=== PATIENT | male | born 1965 | race Caucasian/White ===

== ENCOUNTER 2023-01-11 12:16 | Emergency (ER) | payer MEDICAID, SELFPAY ==
[2023-01-11 12:45] VITALS: BP 137/92; PULSE 75; RESP 18; TEMP 36.7; O2SAT 98; BMI 23.7
--- NOTE | 2023-01-11 12:51 | XR_ITS ---
FINAL REPORT CLINICAL HISTORY: LT FOOT pain COMPARISON: None FINDINGS: LEFT ANKLE Three views demonstrate no acute fracture or dislocation. The visualized joint spaces are normally aligned. The mortise is intact. There is a small plantar spur. The soft tissues are unremarkable. IMPRESSION: No acute bony abnormality. Reviewed, Interpreted and Dictated by Lobo Michael MD Transcribed by Leila Graf Authenticated and [facility]
--- NOTE | 2023-01-11 12:51 | XR_ITS ---
FINAL REPORT CLINICAL HISTORY: LT FOOT pain COMPARISON: None FINDINGS: LEFT FOOT Three views of the left foot demonstrate no acute fracture or dislocation. Small plantar spur is noted. The visualized joint spaces are normally aligned. The soft tissues are unremarkable. IMPRESSION: No acute bony abnormality. Small plantar spur. Reviewed, Interpreted and Dictated by Lobo Michael MD Transcribed by Leila Graf Authenticated and . [facility]
--- NOTE | 2023-01-11 12:55 | EXP.UTC ---
Discharge Plan Disposition Patient Disposition: Home, Self-Care Condition: Good Prescriptions Prescriptions: New methylprednisolone 4 mg Tablets,Dose Pack 4 mg PO DIRECTED Qty: 21 0RF Referrals Follow up/Referrals: Batsheva White PA [Primary Care Provider] - See instructions Taryn Daniels DPM [Staff Physician] - See instructions Activity Restrictions/Add. Instructions Additional Instructions/Restrictions: Rest your left foot, Elevate the extremity as tolerated while you are resting. Take the medications as directed. Follow up with Dr. Daniels (podiatry) if you continue to have the foot and ankle pain. I put in a referral but you need to call her office and schedule an appointment. Follow up with your regular doctor. GO TO THE ER FOR ANY WORSENING SYMPTOMS Clinical Impressions Clinical Impression: Arthralgia, Left foot pain, Ankle pain, left Instructions Patient Instructions: DI for Arthralgia, DI for Foot Pain, Methylprednisolone Discharge ED Provider: Tre Leonardo [facility] General Stated complaint: Lt foot swelling, joint pain Time Seen by Provider: 01/11/23 12:55 History of Present Illness Provider Complaint: He states that he has had multiple joint pain for the past 2 weeks. He states that his left foot and ankle hurts the worst. He denies any injury. Related Data Previous Rx's Medication Instructions Recorded methylprednisolone 4 mg tablets in 4 mg PO DIRECTED #21 tabs 01/11/23 a dose pack Allergies Allergy/AdvReac Type Severity Reaction Status Date / Time No Known Allergies Allergy Verified 01/11/23 13:00 [facility] Disclaimer: The information contained in this section may have been updated after the patient was seen, as this information can be updated by other users. Medical History (Updated 01/11/23 @ 13:40 by Tre Leonardo APRN) Anxiety Depression Seizure UTI (urinary tract infection) Social History Smoking Status: Former smoker alcohol intake: never current occupational status: employed Travel in the last 8 weeks: None ROS Obtained: Yes All systems reviewed & no additional complaints except as documented Constitutional Constitutional: Denies chills and Denies fever(s) Eyes Eyes: Denies eye discharge ENT Ears, Nose, Mouth, and Throat: Denies dizziness, Denies otalgia and Denies sore throat Cardiovascular Cardiovascular: Denies chest pain Respiratory Respiratory: Denies shortness of breath, Denies chest congestion, Denies cough, Denies stridor and Denies wheezing Gastrointestinal Gastrointestingal: Denies nausea or vomiting Musculoskeletal Musculoskeletal: Reports as per HPI and Reports arthralgias Integumentary/Breasts Skin/Breast: Denies rash Neurologic Neurologic: Denies dizziness and Denies paresthesias Allergic/Immunologic Allergic/Immunologic: Denies wheezing Physical Exam General General appearance: alert and in no apparent distress Head Head exam: atraumatic, normocephalic and normal inspection Eye Eye exam: Present normal appearance, PERRL and EOMI ENT ENT exam: Present normal exam, normal oropharynx, mucous membranes moist, TM's normal bilaterally and normal external ear exam Neck Neck exam: Present normal inspection, full ROM and trachea midline; Absent meningismus or lymphadenopathy Chest Chest inspection: Present normal inspection and symmetric chest wall rise; Absent tenderness Respiratory Respiratory exam: Present normal lung sounds bilaterally; Absent respiratory distress Cardiovascular Cardiovascular exam: Present regular rate and normal rhythm; Absent JVD Abdominal Exam Abdominal exam: Present soft and normal bowel sounds; Absent distention, tenderness or guarding Extremities Exam Extremities exam: Present normal capillary refill; Absent calf tenderness Expanded Lower Extremity Exam Left: Knee exam: Present normal inspection, full ROM and knee extension intact; Absent tenderness Lower leg exa
[2023-01-11 13:43] VITALS: BP 137/92; PULSE 75; RESP 18; TEMP 36.7; O2SAT 98
== END 2023-01-11 13:43 | disposition home or self-care (01) ==
PROVIDERS: Emergency Provider Nurse Practitioner Family; PCP Physician Assistant
DX: M79.672 Pain in left foot (principal); M25.572 Pain in left ankle and joints of left foot; F41.9 Anxiety disorder, unspecified; F32.A Depression, unspecified; Z87.891 Personal history of nicotine dependence
CPT/HCPCS: 73610; 73630; 99204; 99212; G0463

== ENCOUNTER 2023-02-05 09:30 | Emergency (ER) | payer MEDICAID, SELFPAY ==
[2023-02-05 10:15] VITALS: BP 124/79; PULSE 66; RESP 20; TEMP 36.8; O2SAT 96; BMI 23.9
--- NOTE | 2023-02-05 10:21 | EXP.UTC ---
Discharge Plan Disposition Patient Disposition: Home, Self-Care Condition: Good Prescriptions Prescriptions: New sulfamethoxazole-trimethoprim [Bactrim DS] 800-160 mg Tablet 1 tab PO BID Qty: 20 0RF cephalexin 500 mg capsule 500 mg PO QID Qty: 40 0RF mupirocin 2 % ointment 1 applic topical TID 7 Days Qty: 15 0RF Referrals Follow up/Referrals: Provider,Referral, MD [Primary Care Provider] - See instructions Activity Restrictions/Add. Instructions Additional Instructions/Restrictions: Keep the affected area clean and dry. Follow up with your regular doctor. Take the antibiotics as directed and apply the topical antibiotics as directed. Apply warm wet compresses to the affected area three or four times per day. GO TO THE ER FOR ANY WORSENING SYMPTOMS Clinical Impressions Clinical Impression: Cutaneous abscess of face Instructions Patient Instructions: Boil Discharge ED Provider: Tre Leonardo [facility] HPI General Stated complaint: KNOT ON LEFT SIDE OF FACE Time Seen by Provider: 02/05/23 10:21 History of Present Illness Provider Complaint: He states that for the past 4 days he has had a swollen area on the left side of his face. The area has been red and there is an open wound with tannish drainage from it. He denies any fever. Related Data Previous Rx's Medication Instructions Recorded cephalexin 500 mg capsule 500 mg PO QID #40 caps 02/05/23 mupirocin 2 % topical ointment 1 applic topical TID 7 days #15 02/05/23 grams sulfamethoxazole 800 1 tab PO BID #20 tabs 02/05/23 mg-trimethoprim 160 mg tablet (Bactrim DS) Allergies Allergy/AdvReac Type Severity Reaction Status Date / Time No Known Allergies Allergy Verified 01/11/23 13:00 [facility] Disclaimer: The information contained in this section may have been updated after the patient was seen, as this information can be updated by other users. Medical History (Updated 02/05/23 @ 10:29 by Tre Leonardo APRN) Anxiety Depression Seizure UTI (urinary tract infection) Social History (Updated 01/12/23 @ 13:38 by Tre Leonardo APRN) Smoking Status: Former smoker alcohol intake: never current occupational status: employed Travel in the last 8 weeks: None ROS Obtained: Yes All systems reviewed & no additional complaints except as documented Constitutional Constitutional: Denies chills and Denies fever(s) Eyes Eyes: Denies eye discharge ENT Ears, Nose, Mouth, and Throat: Denies dizziness, Denies otalgia and Denies sore throat Cardiovascular Cardiovascular: Denies chest pain Respiratory Respiratory: Denies shortness of breath, Denies chest congestion, Denies cough, Denies stridor and Denies wheezing Gastrointestinal Gastrointestingal: Denies nausea or vomiting Musculoskeletal Musculoskeletal: Reports system reviewed and no additional complaints, except as documented and Denies arthralgias Integumentary/Breasts Skin/Breast: Reports as per HPI Neurologic Neurologic: Denies dizziness and Denies paresthesias Allergic/Immunologic Allergic/Immunologic: Denies wheezing Physical Exam General General appearance: alert and in no apparent distress Head Head exam: atraumatic, normocephalic and normal inspection Eye Eye exam: Present normal appearance, PERRL and EOMI ENT ENT exam: Present normal exam, normal oropharynx, mucous membranes moist, TM's normal bilaterally and normal external ear exam Neck Neck exam: Present normal inspection, full ROM and trachea midline; Absent meningismus or lymphadenopathy Chest Chest inspection: Present normal inspection and symmetric chest wall rise; Absent tenderness Respiratory Respiratory exam: Present normal lung sounds bilaterally; Absent respiratory distress Cardiovascular Cardiovascular exam: Present regular rate and normal rhythm; Absent JVD Abdominal Exam Abdominal exam: Present soft and normal bowel sounds; Absent distention, tenderness or guarding Extremities Exam
[2023-02-05 10:32] VITALS: BP 124/79; PULSE 66; RESP 20; TEMP 36.8; O2SAT 96
== END 2023-02-05 10:43 | disposition home or self-care (01) ==
PROVIDERS: Emergency Provider Nurse Practitioner Family
DX: L02.01 Cutaneous abscess of face (principal); F41.9 Anxiety disorder, unspecified; F32.A Depression, unspecified; Z87.891 Personal history of nicotine dependence
CPT/HCPCS: 87070; 87205; 99212; 99214; G0463

== ENCOUNTER 2024-04-24 03:50 | Emergency (ER) | payer MEDICAID, SELFPAY ==
[2024-04-24 04:00] VITALS: BP 135/85; PULSE 77; RESP 18; TEMP 36.6; O2SAT 97; BMI 27.3
--- NOTE | 2024-04-24 04:05 | ED_ITS ---
Discharge Plan Disposition Patient Disposition: Home, Self-Care Condition: Good Prescriptions Prescriptions: New lidocaine 5 % adhesive patch,medicated See Rx Instructions .ROUTE .COMPLEX Qty: 15 0RF Rx Instructions: Put on most painful area and leave on for 12 hours. Remove and leave off for 12 hours before using a new patch. No Action sulfamethoxazole-trimethoprim [Bactrim DS] 800-160 mg Tablet 1 tab PO BID Qty: 20 0RF cephalexin 500 mg capsule 500 mg PO QID Qty: 40 0RF mupirocin 2 % ointment 1 applic topical TID 7 Days Qty: 15 0RF Referrals Follow up/Referrals: Provider,Referral, [Primary Care Provider] - See instructions Activity Restrictions/Add. Instructions Additional Instructions/Restrictions: You were evaluated in the ER and are appropriate for discharge at this time. Use the prescribed lidocaine patches if needed as prescribed. Take Tylenol or ibuprofen if needed for pain, do not exceed the recommended dose on the bottle. Drink water and eat a small snack each time you take these medications to avoid side effects. Please make an appointment with Dr. Ivey again for re-evaluation. Return to the ER with new, worsening, or otherwise concerning symptoms. Clinical Impressions Clinical Impression: Muscle spasm Print Language Print Language: Tajik Discharge ED Provider: Justin Watts General Adult HPI General Stated complaint: pain in neck right arm pain Time Seen by Provider: 04/24/24 04:03 History of Present Illness HPI narrative: 59-year-old male with no known chronic medical conditions who states he does not have a primary care doctor presents to the ER for concerns of pain in the muscles of the right side of the neck. He states has been going on for 2 to 3 weeks. He states it has been constant since it started. He states he woke up 1 day with discomfort in the area and it has been present ever since. He has tried taking [place] for the pain. He states he has not had any injuries, no falls, MVC, has not carried anything heavy on the shoulder recently, no known injuries or traumatic events. He does not have any numbness, tingling, or weakness. He states that the discomfort causes pain with range of motion of the right shoulder but he has full range of motion of the shoulder. He has no other complaints at this time. He states that raising his right arm above his head alleviates the pain. He denies any chest pain, shortness of breath, numbness, tingling, weakness, back pain, abdominal pain, dizziness, headache, or other symptoms. Patient states he has not seen his primary care doctor for this and decided to just get checked out in the ER because his son had checked in to the ER. He reports that he does not believe it is anything serious. Related Data Previous Rx's ?Medication ?Instructions ?Recorded cephalexin 500 mg capsule 500 mg PO QID #40 caps 02/05/23 mupirocin 2 % topical ointment 1 applic topical TID 7 days #15 02/05/23 grams sulfamethoxazole 800 1 tab PO BID #20 tabs 02/05/23 mg-trimethoprim 160 mg tablet (Bactrim DS) lidocaine 5 % topical patch See Rx Instructions topical 04/24/24 .COMPLEX #15 ea Allergies Allergy/AdvReac Type Severity Reaction Status Date / Time No Known Allergies Allergy Verified 01/11/23 13:00 [facility] Disclaimer: The information contained in this section may have been updated after the patient was seen, as this information can be updated by other users. Medical History (Updated 04/24/24 @ 04:05 by Justin Watts MD) Anxiety Depression UTI (urinary tract infection) Seizure Social History (Updated 01/12/23 @ 13:38 by Tre Leonardo APRN) Smoking Status: Former smoker alcohol intake: never current occupational status: employed Travel in the last 8 weeks: None Have you lived/traveled outside [place] in past 30 days?: No Contact w/someone who lives/traveled outside US past 30 days?: No Exposure to someone with infectious disease in past 14 days?: No Do you have a fever (greater than 100.4 F or 38 C)?: No Have you tested positive for COVID-19: No Exposed to someone with COVID-19 in past 14 days?: No Do you have a sore throat?: No Do you have a cough?: No Do you have any weakness?: No Do you have any diarrhea?: No Are you experiencing any unusual bleeding?: No Do you have any muscle aches/pain?: No Do you have any abdominal pain?: No Are you experiencing loss of taste or smell?: No ROS Obtained: Yes Systems reviewed as appropriate & no additional complaints except as documented per HPI Physical Exam General General appearance: alert and in no apparent distress Comment: Appears older than stated age Head Head exam: atraumatic and normocephalic Eye Eye exam: Present PERRL and EOMI ENT ENT exam: Present mucous membranes moist Neck Neck exam: Present normal inspection, full ROM and other (Tenderness of the right trapezius throughout with obvious spasm) Chest Chest inspection: Present symmetric chest wall rise; Absent tenderness Respiratory Respiratory exam: Present normal lung sounds bilaterally; Absent respiratory distress, wheezes or stridor Cardiovascular Cardiovascular exam: Present regular rate and normal rhythm Extremities Exam Extremities exam: Present full ROM, tenderness (Tenderness of the right trapezius muscle with obvious spasm), normal capillary refill and other (Neurovascularly intact throughout); Absent edema or joint swelling Neurological Exam Neurological exam: Present alert, oriented X3 and normal gait; Absent motor sensory deficit Psychiatric Psychiatric exam: Present normal affect and normal mood Skin Skin exam: Present warm and dry Medical Decision Making Medical Records Medical records reviewed: Yes I reviewed the patient's medical records. Screening: Per USPSTF and CDC recommendations, given the prevalence of disease in our region, it is our hospital?s policy to screen for HIV and viral Hepatitis for all patients aged 18 and over and those with ongoing risk factors. MR Comment: Last encounter within our system was with [facility] provider in January 2023. I reviewed this note which demonstrates patient had abscess of the face treated with Bactrim, Keflex, mupirocin Magdiel Inquiry Pt receiving controlled substance: No Orders (Tests/Meds): ED MEDICATIONS Discontinued Medications Generic Name Dose Route Start Last Admin Trade Name Freq PRN Reason Stop Dose Admin Acetaminophen 1,000 mg 04/24/24 04:03 Acetaminophen 500mg Tab PO 04/24/24 04:04 ONCE ONE Lidocaine 1 each 04/24/24 04:03 Lidocaine 5% Transdermal Patch TP 04/24/24 04:04 ONCE ONE Medical Decision Narrative: In summary, this 59-year-old male presents to the emergency department today with right neck/shoulder muscle pain. On initial evaluation patient is hemodynamically stable, afebrile, neurovascularly intact throughout, full range of motion, no traumatic injuries, full range of motion of the neck, exam notable for obvious muscle spasm and tenderness of the right trapezius muscle no midline tenderness of the neck, no findings of injury to the right upper extremity.. Differential diagnosis includes but is not limited to muscle spasm, I also considered cervical radiculopathy but patient has no neurologic deficits or paresthesias, patient has no chest pain or shortness of breath so I do not believe the symptoms are intrathoracic since there is obvious spasm of the right trapezius muscle, I have very low suspicion for any acute or dangerous pathology since his symptoms have been going on for 2 to 3 weeks. Patient does not believe this is anything serious and just wants something more for the pain. He has only been taking [place]. He refused ibuprofen but was willing to take Tylenol and a lidocaine patch. These have been administered. Patient requested to be discharged after Tylenol was given and lidocaine patch applied. I believe this is appropriate. I prescribed lidocaine patches for outpatient management. Patient was given instructions on symptomatic management, follow up instructions, and return precautions for the emergency department. Patient indicated understanding and was discharged in stable condition. Critical Care Critical Care Time Critical Care Time: No
[2024-04-24] MEDS: LIDOCAINE 5% TRANSDERMAL PATCH 1 EACH TP (04:11)
[2024-04-24] MEDS: ACETAMINOPHEN 500MG TAB 1000 MG PO (04:11)
[2024-04-24 04:18] VITALS: BP 135/85; PULSE 77; RESP 12; TEMP 36.6; O2SAT 97
== END 2024-04-24 04:19 | disposition home or self-care (01) ==
PROVIDERS: Emergency Provider Emergency Medicine
DX: M62.838 Other muscle spasm (principal); M54.2 Cervicalgia; M79.601 Pain in right arm
CPT/HCPCS: 99283

== ENCOUNTER 2024-06-27 09:55 | Outpatient (CLI) | payer MEDICAID, SELFPAY ==
--- NOTE | 2024-06-27 10:00 | XR_ITS ---
FINAL REPORT CLINICAL HISTORY: pain FINDINGS: RIGHT ANKLE Three views were obtained. There is no fracture or dislocation. The joint spaces appear normal. No soft tissue abnormality is identified. IMPRESSION: No acute process. Reviewed, Interpreted and Dictated by Daniel Wilkins MD Transcribed by Camelia Hernández Authenticated and . [facility]
--- NOTE | 2024-06-27 10:00 | XR_ITS ---
FINAL REPORT CLINICAL HISTORY: pain FINDINGS: RIGHT SHOULDER Three views were obtained. There is no fracture or dislocation. There is mild AC joint degenerative change. Glenohumeral joint is intact. No soft tissue abnormality is identified. IMPRESSION: Mild AC joint arthropathy. Reviewed, Interpreted and Dictated by Daniel Wilkins MD Transcribed by Camelia Hernández Authenticated and [facility]
--- NOTE | 2024-06-27 10:00 | XR_ITS ---
FINAL REPORT CLINICAL HISTORY: pain COMPARISON: 01/11/2023 FINDINGS: LEFT ANKLE Three views were obtained. There is no fracture or dislocation. The joint spaces appear normal. No soft tissue abnormality is identified. There is minimal calcaneal spurring. IMPRESSION: No acute process. Reviewed, Interpreted and Dictated by Daniel Wilkins MD Transcribed by Camelia Hernández Authenticated and . [facility]
--- NOTE | 2024-06-27 10:00 | XR_ITS ---
FINAL REPORT CLINICAL HISTORY: pain FINDINGS: CERVICAL SPINE Three views were obtained. There is no acute fracture. There is retrolisthesis of C5 on 6 measuring 2 mm. There is moderate degenerative disc disease in the mid cervical spine. IMPRESSION: Moderate degenerative changes. Reviewed, Interpreted and Dictated by Daniel Wilkins MD Transcribed by Camelia Hernández Authenticated and [facility]
[2024-06-27 19:54] LABS: MANUAL DIFFERENTIAL MANUAL DIFFERENTIAL (MANUAL DIFF)
[2024-06-27 20:14] LABS: Basophils # 0.1 K/mm3 (0-0.2); Basophils % 0.6 % (0.1-2.0); Eosinophils # 0.1 K/mm3 (0.0-0.4); Eosinophils % 0.8 % (0.1-12.0); Hematocrit 49.5 % (42.0-52.0); Hemoglobin 16.6 g/dL (14.1-18.0); Lymphocytes # 2.7 K/mm3 (0.7-4.5); Lymphocytes % 35.5 % (10-50); Mean Corpuscular HGB Conc 33.5 g/dL (31.8-35.4); Mean Corpuscular Hemoglobin 32.5 pg (27.0-31.2); Mean Corpuscular Volume 97.1 fl (80-94); Mean Platelet Volume 10.7 fl (7.4-10.4); Monocytes # 0.6 K/mm3 (0.1-1.0); Monocytes % 7.8 % (1.7-9.3); Neutrophils # 4.2 K/mm3 (1.8-7.8); Platelet Count 221 K/mm3 (142-424); Red Cell Distribution Width 12.6 % (11.5-17.5); White Blood Count 7.7 K/mm3 (4.8-10.8)
[2024-06-27 20:43] LABS: Erythrocyte Sedimentation Rate 4 mm/hr (0-20)
[2024-06-27 21:13] LABS: Alanine Aminotransferase 33 U/L (12-78); Albumin Level 4.8 g/dl (3.5-5.0); Albumin/Globulin Ratio 1.8 (1.1-1.8); Alkaline Phosphatase 48 U/L (38-126); Anion Gap 12.5 mEq/L (5-15); Aspartate Amino Transferase 30 U/L (17-59); Bilirubin,Total 0.2 mg/dl (0.2-1.3); Blood Urea Nitrogen 18 mg/dl (9-20); Calcium 9.8 mg/dl (8.4-10.2); Carbon Dioxide 28 mmol/L (22.0-30.0); Chloride 104 mmol/L (98-107); Chol/HDL Ratio 4.7 (1-3.5); Cholesterol 169 mg/dl (140-200); Estimated Glomerular Filt Rate 86 ml/min (>60); GFR (African American) 104 ML/MIN (>60); Globulin 2.6 g/dL (1.3-3.2); Glucose 94 mg/dl (74-100); HDL Cholesterol 36 mg/dl (40-60); Potassium 4.5 mmoL/L (3.5-5.1); Sodium 140 mmol/L (136-145); Total Protein,Serum 7.4 g/dl (6.3-8.2); Triglycerides 77 mg/dl (30-150); VLDL Cholesterol 15 mg/dL (0-40)
[2024-06-27 21:24] LABS: Direct LDL Cholesterol 118.27 mg/dL (100-129)
[2024-06-27 21:48] LABS: Prostate Specific Ag Screen 0.6 ng/ml (0.0-4.0); Thyroid Stimulating Hormone 0.93 uIU/mL (0.465-4.68)
[2024-06-27 22:41] LABS: Eosinophils % 3 % (0-3); Lymphocytes % 43 % (10-50); Monocytes % 9 % (2-9); Neutrophils % 43 % (42-76); Platelet Estimate Normal; RBC Morphology Normal; Total Cells Counted 100
[2024-06-29 14:12] LABS: RA Latex Turbid. <10.0 IU/mL (<14.0)
[2024-06-30 09:14] LABS: Antinuclear Antibodies, IFA Negative (.)
== END 2024-06-27 23:59 | disposition home or self-care (01) ==
LOC: RAD 09:56
PROVIDERS: PCP Family Medicine; Visit Provider Family Medicine
DX: M54.2 Cervicalgia (principal); M25.572 Pain in left ankle and joints of left foot; M25.571 Pain in right ankle and joints of right foot; M25.511 Pain in right shoulder; R35.0 Frequency of micturition; R63.4 Abnormal weight loss; Z68.24 Body mass index [BMI] 24.0-24.9, adult; Z72.0 Tobacco use
CPT/HCPCS: 72040; 73030; 73600; 80053; 80061; 84443; 84550; 85007; 85014; 85018; 85048; 85049; 85651; 86038; 86431; G0103

== ENCOUNTER 2024-07-14 08:36 | Outpatient (CLI) | payer MEDICAID, SELFPAY ==
--- NOTE | 2024-07-14 08:36 | CT_ITS ---
FINAL REPORT CLINICAL HISTORY: lung cancer screening current smoker 1/2 pack x 40 years dlp : 113.07 COMPARISON: None FINDINGS: CT CHEST LOW DOSE SCREENING HISTORY: Screening exam for lung cancer. 59-year-old male, current smoker, [id number] history DOSE: CTDI vol: 2.90 mGy, DLP: 113.07 mGy*cm TECHNIQUE: Axial CT without IV contrast administration using low dose protocol. This study was performed with techniques to keep radiation doses as low as reasonably achievable, (ALARA). Individualized dose reduction techniques using automated exposure control or adjustment of mA and/or kV according to the patient's size were employed. No acute lung disease is present. No pulmonary lesions are seen suspicious for neoplasm. No pleural or pericardial effusion is seen. No adenopathy or mass lesion is present. IMPRESSION: No evidence of lung cancer LUNG RADS CATEGORY 1 RECOMMENDATION: 12 month LDCT follow up Reviewed, Interpreted and Dictated by Daniel Wilkins MD Transcribed by Kate Villa Authenticated and . [facility]
== END 2024-07-14 23:59 | disposition home or self-care (01) ==
LOC: RAD 08:36
PROVIDERS: PCP Family Medicine; Visit Provider Family Medicine
DX: F17.210 Nicotine dependence, cigarettes, uncomplicated (principal)
CPT/HCPCS: 71271

== ENCOUNTER 2024-07-21 08:39 | Outpatient (CLI) | payer MEDICAID, SELFPAY ==
--- NOTE | 2024-07-21 08:46 | XR_ITS ---
FINAL REPORT CLINICAL HISTORY: MRI CLEARANCE. HISTORY OF WELDING AND METAL IN EYES FINDINGS: ORBITS Look up and look down views were obtained. No metallic foreign body identified. IMPRESSION: No metallic foreign body. Reviewed, Interpreted and Dictated by Lobo Michael MD Transcribed by Leila Graf Authenticated and . [facility]
== END 2024-07-21 23:59 | disposition home or self-care (01) ==
LOC: RAD 08:40
PROVIDERS: PCP Family Medicine; Visit Provider Physician Assistant
DX: M25.511 Pain in right shoulder (principal)
CPT/HCPCS: 70200

== ENCOUNTER 2024-07-24 11:00 | Outpatient (CLI) | payer MEDICAID, SELFPAY ==
[2024-07-24 21:43] LABS: Vitamin B12 399 pg/mL (239-931)
== END 2024-07-24 23:59 | disposition home or self-care (01) ==
LOC: LAB.DROPOF 07-25 13:29
PROVIDERS: PCP Family Medicine; Visit Provider Family Medicine
DX: D75.89 Other specified diseases of blood and blood-forming organs (principal)
CPT/HCPCS: 82607; 82746